=== PATIENT | male | born 1965 | race Caucasian/White ===

== ENCOUNTER → 2020-07-15 15:59 | Outpatient (CLI) | payer BC, SELFPAY ==
[2016-03-31 12:27] VITALS: BMI 22.1
[2020-07-15 17:38] LABS: Absolute Lymphocyte Count 1.83 X10^3/uL (0.83-4.51); Absolute Neutrophil Count 2.9 X10^3/uL (2.0-7.7); Basophil# 0.03 X10^3/uL; Basophil% 0.6 % (0-1); Eosinophils% 1.8 % (0-5); Hematocrit 42.5 % (40-54); Hemoglobin 14.2 g/dL (13.0-16.5); Lymphocyte # 1.83 X10^3/ul (4.0); Lymphocyte % 33.8 % (19-41); Mean Corp Hgb Conc 33.4 g/dL (32-36); Mean Corpuscular Hgb 32.9 pg (27.0-32.0); Mean Corpuscular Volume 98.6 fL (80-94); Mean Platelet Vol. 9.6 fl (6.2-12.0); Monocyte% 9.2 % (0-10); NRBC Flagged by Analyzer 0 % (0-5); Neutrophil # 2.94 X10^3/uL (2.7-7.7); Neutrophil % 54.2 % (47-70); Platelet Count 272 K/mm3 (150-450); RBC Distribution Width CV 12.4 % (11.6-14.6); RBC Distribution Width SD 45.1 fl (35.1-43.9); Red Blood Count 4.31 M/mm3 (4.6-6.2); White Blood Count 5.4 K/mm3 (4.4-11.0)
--- NOTE | 2020-07-15 17:46 | RAD_ITS ---
STUDY: X-RAY - LUMBAR SPINE REASON FOR EXAM: Male, 54 years old. LOW BACK PAIN TECHNIQUE: 3 view(s) of the lumbar spine were obtained. COMPARISON: None FINDINGS: Straightening of the lumbar lordosis. There is no substantial scoliosis. There is a normal alignment of the vertebrae. Normal vertebral bodies. Mild spurring at the vertebral endplates. Slightly narrowed L2-3 and L3-4 disc space heights. The soft tissue structures are unremarkable. RAD/Lumbar Spine 2 or 3 Views IMPRESSION: Mild degenerative changes of the lumbar spine. Electronically Signed: Nicolas Jamil DO at 18:41 EDT Tel [phone], Service support ,
[2020-07-15 18:56] LABS: AST(SGOT) 29 U/L (15-37); Alanine Aminotransfer ALT/SGPT 37 U/L (16-61); Albumin, Serum 3.5 g/dL (3.2-5.0); Alkaline Phosphatase 62 U/L (45-117); Anion Gap 2 (5-15); BUN 16 mg/dL (7-18); BUN/Creat Ratio 15.4 RATIO (10-20); Calcium,Total 8.6 mg/dL (8.5-10.1); Chloride 106 mmol/L (98-107); Creatinine, Serum 1.04 mg/dL (0.70-1.30); EST Glomerular Filtration Rate 78 mL/min (>60); Est Glom Filt Rate - Afr Amer 95 mL/min (>60); Globulin 3.5 g/dL (2.2-4.2); Glucose 94 mg/dL (74-106); PSA,Total - Annual Screen 2.12 ng/mL (0.00-4.00); Potassium 3.8 mmol/L (3.5-5.1); Sodium Level 141 mmol/L (136-145); Thyroid Stim Hormone (TSH) 1.56 uIU/mL (0.358-3.74)
[2020-07-16 10:20] LABS: Hepatitis C Antibody Non-Reactive (Nonreactive)
== END ==
PROVIDERS: PCP Family Medicine Geriatric Medicine; Visit Provider Family Medicine Geriatric Medicine
DX: M54.5 Low back pain (principal); I10 Essential (primary) hypertension; Z12.5 Encounter for screening for malignant neoplasm of prostate; Z13.89 Encounter for screening for other disorder
CPT/HCPCS: 36415; 72100; 80053; 84153; 84443; 85025; 86803; G0103

== ENCOUNTER → 2020-07-24 14:51 | Outpatient (CLI) | payer BC, SELFPAY ==
--- NOTE | 2020-07-24 14:57 | CT_ITS ---
STUDY: LOW DOSE CT LUNG CANCER SCREENING REASON FOR EXAM: Male, 54 years old. LUNG SCREENING, OFF/ON SMOKER X 20+YRS 1/2PPD RADIATION DOSAGE (If Supplied By Facility): CTDIvol = ( 1.70 ) mGy, DLP = ( 60.40 ) mGycm TECHNIQUE: No contrast was administered. Low dose technique was utilized (average mAS-38 and kVp 120). 1.25 mm axial source images with a slice interval of 1.25-mm were reconstructed in lung windows. 2.5 mm axial source images with a slice interval of 2.5-mm were reconstructed in lung windows. 5.0 mm axial source images with a slice interval of 5.0-mm were reconstructed in soft tissue windows. Nodule measured using lung windows on PACS and/or independent workstation with automated measurement of minimum and maximum diameter. Nodule measurement reported as average diameter rounded to the nearest whole number. Growth is defined as an increase ins size of greater than 1.5 mm. COMPARISON: None. NODULES: No suspicious nodular density is seen. Emphysema: Hyperinflation. Emphysematous changes more prominent in the upper lobes. Aorta: Unremarkable. Coronary arteries: Coronary artery calcification. Heart: Unremarkable. Pulmonary artery: Unremarkable. Mediastinal nodes: Small mediastinal benign appearing lymphadenopathy. Other chest and abdominal findings: Degenerative changes of the thoracic spine. CT/Low Dose CT Lung Screening IMPRESSION: Lung-RADS category 2 - Continue annual screening with LDCT in 12 months. IMPORTANT NOTES FOR USE: ACR Lung-RADS Version 1.0 Assessment Categories Release Date: February 24, 2014 Category: Coded 0-4 bases on nodule(s) with highest degree of suspicion. Negative screen is defined as categories 1 and 2; a positive screen is defined as categories 3 and 4. Category 3 and 4A nodules that are unchanged on interval CT should be coded as category 2, and individuals returned to screening in 12 months. Category 4X: Category 3 or 4 nodules with additional imaging findings that increase the suspicion of lung cancer, such as spiculation, GGN that doubles in size in 1 year, enlarged lymph notes, etc. Category Modifiers: S (significant finding unrelated to lung cancer) and C (prior history of treated lung cancer) may be added to the 0-4 Lung-RADS Electronically Signed: Jaden Matute, at 15:24 EDT , Service support ,
== END ==
PROVIDERS: PCP Family Medicine Geriatric Medicine; Referring Provider Family Medicine Geriatric Medicine; Visit Provider Family Medicine Geriatric Medicine
DX: F17.210 Nicotine dependence, cigarettes, uncomplicated (principal)
CPT/HCPCS: G0297

== ENCOUNTER 2021-10-25 14:23 | Emergency (ER) | payer BC, SELFPAY ==
[2021-10-25 14:24] VITALS: BP 187/102; PULSE 87; RESP 16; TEMP 36.2; O2SAT 99; BMI 25.7
--- NOTE | 2021-10-25 15:19 | EDS_ITS ---
HPI History of Present Illness Chief Complaint: General Illness Informant: patient Narrative Narrative: Patient is overall healthy male. His fianc?e with whom he lives has Covid. He has had a few days of some soft stools decreased appetite and slight myalgias. No nausea or vomiting. No cough or trouble breathing. He states his energy level is low but not terrible. He did have immunizations against vaccine in the summer. He was told he has to have a check for his work. Nothing really makes symptoms better or worse. PFSH PFSH Medical History no medical history Home Medications naproxen 500 mg PO BID #20 tab 03/31/16 [Rx Last Taken Unknown] oxycodone-acetaminophen 1 - 2 tab PO Q4H PRN PRN #20 tab 03/31/16 [Rx Last Taken Unknown] penicillin V potassium 500 mg PO 4X/DAY #40 tab 03/31/16 [Rx Last Taken Unknown] Allergy/AdvReac Type Severity Reaction Status Date / Time No Known Allergies Allergy Verified 10/25/21 14:24 Social History Smoking Status: Current every day smoker tobacco type: cigarettes ROS ROS ED Constitutional Constitutional ED: Reports subjective Eyes Eyes: Denies change in vision ENT ENT ED: Reports rhinorrhea; Denies sore throat Cardiovascular Cardiovascular: Denies chest pain Respiratory/Chest Respiratory/Chest: Denies cough or dyspnea Gastrointestinal Gastrointestinal: Reports diarrhea; Denies nausea or vomiting Genitourinary Genitourinary ED: Denies dysuria Musculoskeletal Musculoskeletal: Reports myalgias Integumentary Denies rash Neurologic Neurologic: Denies headache(s) Endocrine Endocrinology: Denies polydipsia or polyuria Allergic/Immunologic Allergic/Immunologic ED: Denies mouth swelling or urticaria EXAM Physical Exam Const Vital Signs: 10/25/21 14:24 10/25/21 15:39 Temperature 97.1 F L Temperature Source Temporal Pulse Rate 87 Respiratory Rate 16 Respiratory Effort Normal Non-Labored Respiratory Pattern Normal Blood Pressure 187/102 H Blood Pressure Mean 130 Pulse Ox 99 Oxygen Delivery Method Room Air Positive well nourished and well developed General Appearance ED: well developed and NAD; Negative for cyanotic or diaphoretic HEENT Negative for trauma or tenderness Eyes General Eye ED: Negative for pale conjunctiva or scleral icterus Neck no JVD Chest Wall inspection of chest normal Resp normal respiratory effort and clear to auscultation bilaterally Effort and Inspection: Negative for pain with movement Auscultation: Negative for rales, rhonchi or wheezes Cardio regular rate and regular rhythm GI normal to inspection, nondistended, normoactive bowel sounds and non-tender Palpation: soft Back/Spine no CVA tenderness Extremity General Extremety ED: Negative for edema or tenderness General Extremity: Negative for edema Neuro Sensorium / Orientation: alert Psych mental status grossly normal Skin no rashes or lesions noted MDM MDM MDM Narrative Medical decision making narrative: Patient's Covid antigen test is negative. I explained to him that this will turkey picker approximately 85% of disease. It is still possible he is positive. He will also need to get his blood pressure followed. If he has further symptoms, shortness of breath, or other concerns he may need to return. If he still having symptoms in a few days he may want to get rechecked at a testing center or a home test. Lab Data Attestation: I reviewed the patient's lab results. Discharge Plan Triage Chief Complaint: General Illness ED Provider: Thad Lim Dx/Rx/DC Orders Clinical Impression: Diarrhea, Myalgia Instructions: ED Traveler's Diarrhea (Adult), Coronavirus Disease 2019 (COVID- 19): Caring for Yourself or Others Prescriptions: No Action penicillin V potassium 500 MG tablet 500 mg PO 4X/DAY Qty: 40 RF: 0 oxycodone-acetaminophen 1 TABLET tablet 1 - 2 tab PO Q4H PRN PRN (Reason: Pain) Qty: 20 RF: 0 naproxen 500 MG tablet 500 mg PO BID Qty: 20 RF: 0 Primary Care Provider: Lee Byers Chi Referrals: Lee Byers Chi, MD [Primary Care Provider] - 3-5 Days if not improving Disposition Disposition: Home, Self Care
[2021-10-25 16:42] VITALS: BP 132/67; PULSE 65; RESP 18; O2SAT 97
== END 2021-10-25 16:44 | disposition home or self-care (01) ==
PROVIDERS: Emergency Provider Emergency Medicine; PCP Family Medicine Geriatric Medicine
DX: R19.7 Diarrhea, unspecified (principal); M79.10 Myalgia, unspecified site; F17.210 Nicotine dependence, cigarettes, uncomplicated
CPT/HCPCS: 87426; 99282

== ENCOUNTER 2025-04-06 10:18 | Emergency (ER) | payer BC, SELFPAY ==
[2025-04-06 10:19] VITALS: BP 166/114; PULSE 93; RESP 16; TEMP 36.9; O2SAT 98
[2025-04-06 10:22] VITALS: BMI 24.9
--- NOTE | 2025-04-06 10:36 | EDS_ITS ---
HPI History of Present Illness Chief Complaint: Lower Extremity Injury Informant: patient Narrative Narrative: Patient 59-year-old male presenting with injury to his right great toe and foot. He states around 1 AM he was doing some exercises and dropped a 20 pound weight on his foot. He had immediate pain. He states the pain is throbbing in nature. He could not sleep because of the pain. Took Motrin just before coming in with no relief. Denies associated numbness. Denies any injuries. Does have associated swelling and bruising to the foot and great toe. Came in for further evaluation. Does report concern not being able to work as he states he works at [employer] and has to do a lot of walking and heavy lifting. States he is not on any blood thinners. No other complaints at this time. PFSH PFSH Home Medications ?Medication ?Instructions ?Recorded ?Last Taken ?Type naproxen 500 mg tablet 500 mg PO BID #20 tabs 03/31 Unknown Rx oxycodone-acetaminophen 5 mg-325 1 - 2 tab PO Q4H PRN PRN Pain #20 03/31/16 Unknown Rx mg tablet tabs penicillin V potassium 500 mg 500 mg PO 4X/DAY #40 tab s 03/31/16 Unknown Rx tablet hydrocodone-acetaminophen 5-325mg 1 tab PO Q6H PRN PRN Pain 3 days 04/06/25 Unknown Rx 5mg-325mg #12 TABLETS Allergy/AdvReac Type Severity Reaction Status Date / Time No Known Allergies Allergy Verified 04/06/25 10:31 Social History Smoking Status: Current every day smoker tobacco type: cigarettes ROS ROS ED Musculoskeletal Musculoskeletal: Reports other Details: Right foot and right great toe pain Integumentary Reports other Details: Bruising to right great toe Neurologic Neurologic: Denies paresthesias or weakness Hematologic/Lymphatic Hematologic/Lymphatic: Denies easy bleeding or easy bruising EXAM Physical Exam Const Vital Signs: 04/06/25 10:19 Temperature 98.5 F Temperature Source Oral Pulse Rate 93 Respiratory Rate 16 Blood Pressure 166/114 H Blood Pressure Mean 131 Pulse Ox 98 Oxygen Delivery Method Room Air Positive well nourished and well developed General Appearance ED: well developed and NAD HEENT normocephalic and atraumatic Chest Wall inspection of chest normal Resp normal respiratory effort Cardio Cardio Narrative: 2+ DP pulse on the right present Extremity Extremity Narrative: Swelling and associate decreased range of motion of the right great toe. Tenderness palpation over the right first distal metatarsal as well as diffusely of the great toe. Soft tissue swelling noted of the great toe. Neuro oriented x3, moves all extremities and no sensory deficits noted Sensorium / Orientation: alert Psych mental status grossly normal Skin Skin Narrative: Very subtle approximately 10% subungual hematoma at the base of the right great toenail. Erythema over the distal aspect of the first metatarsal and bruising most pronounced over the proximal phalanx of the great toe MDM MDM MDM Narrative Medical decision making narrative: Patient evaluated for injury to his right foot. X-ray of the foot with attention to the right great toe is ordered. Differential includes contusion, subungual hematoma, toe fracture and dislocation. X-ray reviewed by myself as well as radiology shows fracture of the distal great toe. Patient is given a dose of Friona for pain control emergency room. Will be given a postop shoe and podiatry follow-up. Given a work note for the next few days until he can follow-up with podiatry. Given return precautions. Discussed elevation, rest and icing. Discharged home in stable condition. Radiography Diagnostic Testing: Clinical Impression(s) from Imaging Studies Foot X-Ray 04/06/25 10:38 IMPRESSION: Fracture great toe [facility] Discharge Plan Triage Chief Complaint: Lower Extremity Injury ED Provider: Radha Ibarra Dx/Rx/DC Orders Clinical Impression: Closed fracture of right great toe Instructions: ED Fracture, Toe, Closed Prescriptions: New hydrocodone-acetaminophen 5-325 mg tablet 1 tab PO Q6H PRN PRN (Reason: Pain) 3 Days Qty: 12 0RF No Action penicillin V potassium 500 MG tablet 500 mg PO 4X/DAY Qty: 40 0RF oxycodone-acetaminophen 1 TABLET tablet 1 - 2 tab PO Q4H PRN PRN (Reason: Pain) Qty: 20 0RF naproxen 500 MG tablet 500 mg PO BID Qty: 20 0RF Stand Alone Forms: ED Work / School Excuse Primary Care Provider: Lee Byers Chi Referrals: Rashel Corley DPM [Med Staff - Active Staff] - Lee Byers Chi, MD [Primary Care Provider] - Activity Restrictions/Additional Instructions: Please follow-up with your primary care doctor or podiatry. You have a fracture of your right great toe. Wear walking boot as needed for comfort. You may also take [id number] ibuprofen (up to 600 mg every 6 hours) in addition to the pain medication prescribed. You may take 1 additional 325 mg Tylenol with your pain medication as well. Print Language: Icelandic Disposition Disposition: Home, Self Care
[2025-04-06] MEDS: HYDROcodone Bitartrate/Apap 5/325 Tablet PO (10:37)
--- NOTE | 2025-04-06 10:38 | RAD_ITS ---
PROCEDURE: FOOT MIN 3 VIEWS 04/06/2025 REASON FOR EXAM: INJURY/PAIN TECHNIQUE: 3 views of the right foot. COMPARISON: None FINDINGS: Bones: Nondisplaced fracture mid distal phalanx great toe Joints: Remarkable Soft tissues: Soft tissue swelling of great toe. Other: RAD/Foot min 3 Views IMPRESSION: Fracture great toe Reading Location[facility]
[2025-04-06 11:52] VITALS: BP 155/90; PULSE 87; RESP 15; TEMP 36.9; O2SAT 98
== END 2025-04-06 11:53 | disposition home or self-care (01) ==
PROVIDERS: Emergency Provider Emergency Medicine; PCP Family Medicine Geriatric Medicine; Visit Provider Emergency Medicine
DX: S92.424A Nondisplaced fracture of distal phalanx of right great toe, initial encounter for closed fracture (principal); X58.XXXA Exposure to other specified factors, initial encounter; Y93.B9 Activity, other involving muscle strengthening exercises; F17.210 Nicotine dependence, cigarettes, uncomplicated
CPT/HCPCS: 73630; 99283